=== PATIENT | male | born 1980 | race Hispanic/Latino ===

== ENCOUNTER 2018-10-08 07:54 | Observation (INO) | payer OTHER ==
[~2018-10-08] VITALS: Ht 170.2 cm; Wt 96.0 kg
[2018-10-08] MEDS ORDERED: DICYCLOMINE HCL 20 MG/2 ML VIAL IM ONE (08:00)
[2018-10-08] MEDS ORDERED: LOPERAMIDE HCL 2 MG CAP PO ONE (08:00)
[2018-10-08] MEDS ORDERED: SODIUM CHLORIDE 0.9% 1000ML 2,000 ML IV ONE (08:00)
[2018-10-08] MEDS ORDERED: LACTOBACILLUS ACIDOPHILUS CAPSULE PO ONE (08:00)
[2018-10-08] MEDS ORDERED: SODIUM CHLORIDE 0.9% 1000ML 2,000 ML ONE (08:26)
[2018-10-08] MEDS ORDERED: FAMOTIDINE 20 MG/2 ML VIAL IV NR (08:30)
[2018-10-08] MEDS ORDERED: METOCLOPRAMIDE HCL 10 MG/2ML VIAL IV NR (08:30)
[2018-10-08 08:41] LABS: HEMATOCRIT 47.7 % (38.2-49.6); HEMOGLOBIN 16.2 g/dL (14.0-18.0); MEAN CORPUSCULAR HEMOGLOBIN 26.8 pg (28-32); MEAN CORPUSCULAR VOLUME 78.8 fL (81-99); PLATELET COUNT 314 x10e3/uL (140-360); RED BLOOD COUNT 6.05 x10e6/uL (4.3-5.7); RED CELL DISTRIBUTION WIDTH 12.5 % (11.7-14.4)
[2018-10-08] MEDS ORDERED: ATENOLOL50 MG PO (08:51)
[2018-10-08] MEDS ORDERED: MIRTAZAPINE30 MG PO (08:51)
[2018-10-08 08:59] LABS: ALANINE AMINOTRANSFERASE 50 IU/L (0-55); ALBUMIN 4.1 g/dL (3.5-5.0); ALBUMIN/GLOBULIN RATIO 1.1 (0.8-2.0); ALKALINE PHOSPHATASE 105 IU/L (40-150); ANION GAP 17.7 mmol/L (8-16); BLOOD UREA NITROGEN 21 mg/dL (7-26); BUN/CREATININE RATIO 20 (6-25); CALCIUM 8.8 mg/dL (8.4-10.2); CARBON DIOXIDE 16 mmol/L (22-29); CHLORIDE 97 mmol/L (98-107); CREATININE, SERUM 1.04 mg/dL (0.72-1.25); EST GLOMERULAR FILTRATION RATE > 60 ML/MIN (60-); GLUCOSE 290 mg/dL (74-118); LIPASE 44 U/L (8-78); POTASSIUM 3.7 mmol/L (3.5-5.1); SODIUM 127 mmol/L (136-145)
[2018-10-08] MEDS ORDERED: IBUPROFEN400 MG PO (08:59)
[2018-10-08] MEDS ORDERED: ATORVASTATIN CA20 MG PO (08:59)
[2018-10-08] MEDS ORDERED: LISINOPRIL2.5 MG PO (08:59)
[2018-10-08] MEDS ORDERED: NOVOLOG100 UNIT/1 SC (08:59)
[2018-10-08] MEDS ORDERED: VITAMIN D400 UNIT PO (08:59)
[2018-10-08] MEDS ORDERED: LEVEMIR100 UNIT/1 SC (08:59)
[2018-10-08] MEDS ORDERED: PANTOPRAZOLE SO40 MG PO (08:59)
[2018-10-08] MEDS ORDERED: METFORMIN HCL500 MG PO (08:59)
[2018-10-08] MEDS ORDERED: CETIRIZINE HCL10 MG PO (08:59)
[2018-10-08] MEDS ORDERED: LACTATED RINGER'S 1,000 ML ONE (10:10)
[2018-10-08] MEDS ORDERED: LACTATED RINGER'S 1,000 ML IV ONE (10:15)
[2018-10-08] MEDS ORDERED: IBUPROFEN 600 MG TAB PO STA (10:34)
[2018-10-08] MEDS ORDERED: SODIUM CHLORIDE FLUSH 10 ML SYR INJ PRN (11:15)
[2018-10-08] MEDS ORDERED: HYOSCYAMINE 0.125 MG TAB PO PRN (11:15)
[2018-10-08] MEDS ORDERED: LOPERAMIDE HCL 2 MG CAP PO PRN (11:15)
[2018-10-08 11:17] LABS: EOSINOPHILS % (MANUAL) 2 % (0-7); LYMPHOCYTES % (MANUAL) 2 % (19-48); MONOCYTES % (MANUAL) 5 % (3.4-9.0); NEUTROPHILS % (MANUAL) 91 % (40-74); PLATELET ESTIMATE ADEQUATE; PLATELET MORPHOLOGY COMMENT NORMAL
[2018-10-08 11:18] LABS: RBC MORPHOLOGY COMMENT NORMAL
[2018-10-08] MEDS ORDERED: DEXTROSE 50% SYRINGE 50 ML IV PRN (11:30)
[2018-10-08] MEDS: CEFTRIAXONE SOD 1 GM/NS 50 ML 50 ML IV SCH ×2 (12:04)
[2018-10-08] MEDS: SODIUM CHLORIDE 0.9% 1000ML 1,000 ML IV SCH ×2 (12:04→17:27)
[2018-10-08] MEDS: ONDANSETRON HCL INJ 2MG/ML 2ML 2 MG/ML VIAL IV PRN ×2 (12:05→16:12)
[2018-10-08 15:10] VITALS: BP 120/82
--- NOTE | 2018-10-08 15:30 | NUR ---
Pt received from ER via wheelchair with at bedside. Alert and oriented x4 with saline lock #20 in right AC. Oriented to staff and surroundings, encouraged to press call bruno if help needed. Emotional support given. Fall precautions maintained. Will monitor
[2018-10-08 15:55] VITALS: BP 120/82
[2018-10-08] MEDS: MORPHINE SULFATE INJ 4 MG/ML INJ 1ML IV PRN (16:12)
[2018-10-08] MEDS: INSULIN REGULAR, HUMAN 100 UNIT/1 ML 3ML VIAL SQ SCH ×2 (16:30→21:29)
[2018-10-08] MEDS: FAMOTIDINE 20 MG/2 ML VIAL IV SCH (17:27)
--- NOTE | 2018-10-08 18:47 | NUR ---
Stool for C. Diff sent. Meds given as ordered. Emotional support given. Fall precautions maintained. Will endorse to next shift
--- NOTE | 2018-10-08 19:20 | NUR ---
Reported received from morning nurse. Pt alert to name. Lying in bed HOB 30. Denies pain at this time. Call bruno within reach. Will continue to monitor.
[2018-10-08 20:00] VITALS: BP 111/73
[2018-10-08 20:15] VITALS: BP 111/73
--- NOTE | 2018-10-08 20:49 | NUR ---
Spoke with WILLIAMS Mares to Dr. Del Castillo regarding Pt's fever 101.2. Ordered Tylenol 650mg every 6 hours prn pain/fever.
[2018-10-08] MEDS ORDERED: ACETAMINOPHEN 325 MG TAB PO PRN (21:00)
[2018-10-09] VITALS (7 sets, daily range): BP systolic 107–139; BP diastolic 74–91
[2018-10-09] MEDS: SODIUM CHLORIDE 0.9% 1000ML 1,000 ML IV SCH ×3 (04:31→23:29)
[2018-10-09 05:56] LABS: BASOPHILS % 0.2 % (0.0-1.0); EOSINOPHILS # (AUTO) 0.2 (0.0-0.4); EOSINOPHILS % 3.9 % (0.0-6.0); HEMATOCRIT 37.1 % (38.2-49.6); HEMOGLOBIN 12.2 g/dL (14.0-18.0); LYMPHOCYTES # (AUTO) 1.1 (1.0-3.2); LYMPHOCYTES % 20.8 % (18.0-39.1); MEAN CORPUSCULAR HEMOGLOBIN 26.3 pg (28-32); MEAN CORPUSCULAR HGB CONC 32.9 g/dL (31-35); MEAN CORPUSCULAR VOLUME 80.1 fL (81-99); MONOCYTES # (AUTO) 0.7 (0.2-0.8); MONOCYTES % 13.6 % (4.4-11.3); NEUTROPHILS # (AUTO) 3.1 (2.1-6.9); NEUTROPHILS % 60.9 % (38.7-80.0); PLATELET COUNT 217 x10e3/uL (140-360); RED BLOOD COUNT 4.63 x10e6/uL (4.3-5.7); RED CELL DISTRIBUTION WIDTH 12.3 % (11.7-14.4)
[2018-10-09 06:14] LABS: ALANINE AMINOTRANSFERASE 36 IU/L (0-55); ALBUMIN 2.8 g/dL (3.5-5.0); ALKALINE PHOSPHATASE 70 IU/L (40-150); ANION GAP 10.5 mmol/L (8-16); BLOOD UREA NITROGEN 10 mg/dL (7-26); BUN/CREATININE RATIO 13 (6-25); CALCIUM 7.8 mg/dL (8.4-10.2); CARBON DIOXIDE 22 mmol/L (22-29); CHLORIDE 105 mmol/L (98-107); EST GLOMERULAR FILTRATION RATE > 60 ML/MIN (60-); GLUCOSE 127 mg/dL (74-118); MAGNESIUM 1.7 MG/DL (1.3-2.1); PHOSPHORUS 2.8 MG/DL (2.3-4.7); POTASSIUM 3.5 mmol/L (3.5-5.1); SODIUM 134 mmol/L (136-145)
--- NOTE | 2018-10-09 07:02 | NUR ---
RECEIVED PATIENT RESTING IN BED. NO ACUTE DISTRESS NOTED. DENIES PAIN OR DISCOMFORT. CALL LIGHT WITHIN REACH. BED IN THE LOWEST POSITION.
[2018-10-09] MEDS: INSULIN REGULAR, HUMAN 100 UNIT/1 ML 3ML VIAL SQ SCH ×4 (07:30→21:00)
[2018-10-09] MEDS: FAMOTIDINE 20 MG/2 ML VIAL IV SCH ×2 (09:09→17:49)
[2018-10-09] MEDS: LACTOBACILLUS ACIDOPHILUS CAPSULE PO SCH (09:09)
[2018-10-09] MEDS: CEFTRIAXONE SOD 1 GM/NS 50 ML 50 ML IV SCH ×2 (11:12→23:29)
[2018-10-09] MEDS ORDERED: CYCLOBENZAPRINE10 MG PO (14:44)
--- NOTE | 2018-10-09 19:36 | NUR ---
REPORT GIVEN TO ONCOMING NURSE. PATIENT IS RESTING IN BED. NO ACUTE DISTRESS NOTED. PATIENT DENIES PAIN OR DISCOMFORT. CALL LIGHT WITHIN REACH. BED IN THE LOWEST POSITION.
--- NOTE | 2018-10-09 19:41 | NUR ---
PT IS RESTING IN BED. NO RESPIRATORY DISTRESS NOTED. BED IN THE LOWEST POSITION, LOCKED, AND CALL LIGHT WITHIN REACH. WILL CONTINUE TO MONITOR.
[2018-10-09] MEDS ORDERED: GABAPENTIN300 MG PO (19:46)
--- NOTE | 2018-10-09 20:59 | NUR ---
SPOKE TO DR SHARATH ZURITA TO FIND OUT IF SOMEONE WILL BE SEEING THE PT TODAY. THE PT IS VERY UPSET AND IS COMPLAINING THAT NO ONE HAS SEEN HIM YET. PER NOEMY BERNABE WILL BE SEEING HE PT. WILL CONTINUE TO MONITOR.
[2018-10-09] MEDS ORDERED: HYDRALAZINE HCL 20 MG/ML VIAL IV PRN (22:45)
[2018-10-09] MEDS ORDERED: IBUPROFEN 400 MG TAB PO PRN (23:15)
[2018-10-09] MEDS ORDERED: POTASSIUM CHLORIDE 20 MEQ TAB CR PO STA (23:17)
[2018-10-09] MEDS ORDERED: MIRTAZAPINE 15 MG TAB PO SCH (23:18)
[2018-10-10] VITALS: BP 122/69
[2018-10-10 04:45] VITALS: BP 127/73
[2018-10-10 06:16] LABS: BASOPHILS % 0.4 % (0.0-1.0); EOSINOPHILS # (AUTO) 0.2 (0.0-0.4); EOSINOPHILS % 3.9 % (0.0-6.0); HEMATOCRIT 37.2 % (38.2-49.6); HEMOGLOBIN 12.5 g/dL (14.0-18.0); LYMPHOCYTES # (AUTO) 1.3 (1.0-3.2); LYMPHOCYTES % 28.3 % (18.0-39.1); MEAN CORPUSCULAR HEMOGLOBIN 26.8 pg (28-32); MEAN CORPUSCULAR HGB CONC 33.6 g/dL (31-35); MEAN CORPUSCULAR VOLUME 79.8 fL (81-99); MONOCYTES # (AUTO) 0.7 (0.2-0.8); MONOCYTES % 13.9 % (4.4-11.3); NEUTROPHILS # (AUTO) 2.5 (2.1-6.9); NEUTROPHILS % 52.9 % (38.7-80.0); PLATELET COUNT 214 x10e3/uL (140-360); RED BLOOD COUNT 4.66 x10e6/uL (4.3-5.7); RED CELL DISTRIBUTION WIDTH 12.3 % (11.7-14.4)
[2018-10-10] MEDS: SODIUM CHLORIDE 0.9% 1000ML 1,000 ML IV SCH ×2 (06:37→14:50)
[2018-10-10 06:59] LABS: ANION GAP 11.9 mmol/L (8-16); BLOOD UREA NITROGEN 8 mg/dL (7-26); BUN/CREATININE RATIO 11 (6-25); CALCIUM 8.3 mg/dL (8.4-10.2); CARBON DIOXIDE 22 mmol/L (22-29); CHLORIDE 109 mmol/L (98-107); CHOL/HDL RATIO 4.2 (3.9-4.7); CHOLESTEROL 93 MD/DL (0-199); CREATININE, SERUM 0.74 mg/dL (0.72-1.25); EST GLOMERULAR FILTRATION RATE > 60 ML/MIN (60-); GLUCOSE 148 mg/dL (74-118); HDL CHOLESTEROL 22 MG/DL (40-60); LDL CHOLESTEROL 44 MG/DL (60-130); MAGNESIUM 1.8 MG/DL (1.3-2.1); PHOSPHORUS 3.8 MG/DL (2.3-4.7); POTASSIUM 3.9 mmol/L (3.5-5.1); SODIUM 139 mmol/L (136-145); TRIGLYCERIDES 133 MG/DL (0-149)
--- NOTE | 2018-10-10 07:07 | NUR ---
RECEIVED PATIENT RESTING IN BED. NO ACUTE DISTRESS NOTED. PAIN AT A TOLERABLE LEVEL AT THIS TIME. CALL LIGHT WITHIN REACH. BED IN THE LOWEST POSITION.
[2018-10-10] MEDS: INSULIN REGULAR, HUMAN 100 UNIT/1 ML 3ML VIAL SQ SCH ×2 (07:30→11:30)
[2018-10-10 07:35] VITALS: BP 121/89
[2018-10-10 07:54] VITALS: BP 121/89
[2018-10-10] MEDS ORDERED: NON-FORMULARY MEDICATION (Cholecalciferol (Vitamin D3) (Vitamin D) 400 UNITS) PO SCH (09:00)
[2018-10-10] MEDS ORDERED: CHOLECALCIFEROL 400 UNIT TAB PO SCH (09:00)
[2018-10-10] MEDS ORDERED: LORATADINE 10 MG TAB PO SCH (09:00)
[2018-10-10] MEDS ORDERED: NON-FORMULARY MEDICATION (Cetirizine Hcl 10 MG) PO SCH (09:00)
[2018-10-10] MEDS: LACTOBACILLUS ACIDOPHILUS CAPSULE PO SCH (09:06)
[2018-10-10] MEDS: FAMOTIDINE 20 MG/2 ML VIAL IV SCH (09:06)
[2018-10-10] MEDS: ONDANSETRON HCL INJ 2MG/ML 2ML 2 MG/ML VIAL IV PRN (09:07)
[2018-10-10] MEDS: MORPHINE SULFATE INJ 4 MG/ML INJ 1ML IV PRN (09:07)
--- NOTE | 2018-10-10 11:13 | NUR ---
SOCIAL WORK INITIAL ASSESSMENT Fitness Technician to bedside to discuss plan of care with patient/family. CM/SW role and care transitions discussed. Anticipated discharge plan discussed along with duration of care. CM/SW discussed patients right to make decisions in care. CM/SW work hours given. 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 Name and number was also written on the patients whiteboard. Patient verbalized understanding of discussion. CM will follow-up with ongoing discharge and transition of care needs.
[2018-10-10 12:08] VITALS: BP 123/85
--- NOTE | 2018-10-10 12:16 | NUR ---
PER DR. ASHA GONZALEZ TO DC ISOLATION FOR PATIENT.
[2018-10-10] MEDS: CEFTRIAXONE SOD 1 GM/NS 50 ML 50 ML IV SCH (12:34)
[2018-10-10] MEDS ORDERED: Lactobacillus Acidophilus PO (15:06)
[2018-10-10] MEDS ORDERED: IMODIUM2 MG PO (15:06)
[2018-10-10 16:29] VITALS: BP 119/87
--- NOTE | 2018-10-10 16:47 | NUR ---
RECEIVED DC ORDER FROM ART LIBRARIAN. PATIENT IS IN STABLE CONDITION. IV TO RIGHT AC DISCONTINUED WITH TIP INTACT, PRESSURE APPLIED TO SITE, NO BLEEDING NOTED. DISCHARGE FOLDER, WHICH INCLUDES THE DC PAPERWORK AND PRESCRIPTIONS, AND PERSONAL ITEMS ON HAND. PATIENT ACCOMPANIED TO PRIVATE AUTO BY STAFF.
--- NOTE | 2018-10-10 17:11 | Consultation ---
DATE OF CONSULTATION: Pulmonary Critical Care Consultation CHIEF COMPLAINT: Nausea, vomiting, and diarrhea. HISTORY OF PRESENT ILLNESS: The patient is a 38-year-old man. He has a history of type 2 diabetes and obstructive sleep apnea. The day before yesterday he started noticing some diarrhea as well as some nausea and some vomiting. He was unable to keep anything down. He denied any fevers. He denies any prior history of gastrointestinal problems. PAST SURGICAL HISTORY: 1. Status post stent. 2. Status post surgery for a medial collateral ligament rupture. 3. Status post . SOCIAL HISTORY: The patient has a history of some smoking and rarely drinks. PAST MEDICAL HISTORY: 1. Type 2 diabetes. 2. Hypertension. 3. Obstructive sleep apnea. ALLERGIES: NO KNOWN DRUG ALLERGIES. REVIEW OF SYSTEMS: He has no fever. He denies any headache or nasal congestion. He has no sore throat. He does not complain of any chest pain. The patient has some dyspnea, but no cough. There is no abdominal pain. He has no nausea or vomiting. He has no further diarrhea. PHYSICAL EXAMINATION: VITAL SIGNS: The patient is afebrile. The blood pressure is 121/89, pulse is 70, respiratory rate is 18, and saturation is 98%. HEENT: Shows no facial swelling or erythema. The oropharynx is normal. LYMPHATIC: Shows no submandibular, cervical, or supraclavicular adenopathy. CARDIAC: Reveals regular rate and rhythm with normal S1 and S2. There are no murmurs or rubs. LUNGS: Auscultation of lungs reveals clear breath sounds bilaterally. There is no wheezing. ABDOMEN: Soft, nontender. There is no rebound or guarding. EXTREMITIES: Show no leg edema or calf tenderness. LABORATORY DATA: White blood cell count is 4.66 and the hemoglobin is 12.5. The platelet count is 214. BUN to creatinine ratio is 8 to 0.74 and the other electrolytes are within normal limits. IMPRESSION: 1. Acute gastroenteritis. 2. Obstructive sleep apnea. 3. Type 2 diabetes mellitus. 4. Hypertension. PLAN: 1. Continue IV hydration. 2. Oral fluoroquinolone for infectious gastroenteritis. 3. Continue CPAP at night. 4. Continue current diabetic regimen. Masoud Estrella MD Magaly/SCOTTYL /[id number]
[2018-10-10] MEDS ORDERED: ATORVASTATIN 20 MG TAB PO SCH (21:00)
[2018-10-10] MEDS ORDERED: NON-FORMULARY MEDICATION (Mirtazapine 30 MG) PO SCH (21:00)
[2018-10-10] MEDS ORDERED: GABAPENTIN 300 MG CAP PO SCH (21:00)
--- NOTE | 2018-10-11 15:14 | Discharge Summary ---
PERTINENT HISTORY AND PHYSICAL FINDINGS: The patient was admitted with complaints of mild nausea, vomiting, diarrhea with crampy abdominal pain, which started Friday on October 07. He was also experiencing severe watery diarrhea. He denied any sick contacts with any individuals. Did state that his heart rate was fast. He recalled vomiting 2 to 3 times on October 07, but none since. A 38-year-old male, last ate on October 06 with his entire family and no one became sick afterwards except for him. PAST MEDICAL HISTORY: Significant for type 2 diabetes mellitus, hypertension, hyperlipidemia, anxiety, depression associated with PTSD, traumatic brain injury as a disabled , history of obstructive sleep apnea with use of CPAP at home. He no longer smokes. ADMITTING DIAGNOSES: 1. Acute viral gastroenteritis with volume depletion and severe dehydration. 2. Type 2 diabetes mellitus. 3. Hypertension. 4. Hypokalemia. 5. Hyponatremia. 6. Obstructive sleep apnea. 7. Post-traumatic stress disorder/history of traumatic brain injury/anxiety/depression/disabled . DISCHARGE DIAGNOSES: 1. Acute viral gastroenteritis with volume depletion and severe dehydration. 2. Type 2 diabetes mellitus. 3. Hypertension. 4. Hypokalemia. 5. Hyponatremia. 6. Obstructive sleep apnea. 7. Post-traumatic stress disorder/history of traumatic brain injury/anxiety/depression/disabled . CONSULTATIONS: There were no consulting physicians with this admission. PERTINENT DIAGNOSTICS AND LABS: The white blood cell count on October 08 was 12.18, this has improved to 4.66, hemoglobin 16.2 and hematocrit 47.7 on admission. This has decreased with hydration. On October 08, sodium 127, chloride 97, anion gap 17.7, glucose 290. Hemoglobin A1c on October 10 was 9.4%. C difficile toxin was negative on October 08, lipase 44, total protein 5.6, albumin 2.8. HOSPITAL COURSE: For the acute viral gastroenteritis, the patient was given probiotic, hyoscyamine. He was on high rate IV fluids of normal saline at 125 mL an hour during his stay and remains on this to complete his hydration. Prior to discharge, his diet was gradually advanced. He was on a clear liquid diet. This was increased to a 2200-calorie ADA GI soft diet. His Levemir insulin and NovoLog insulin were held while he was not eating much. In addition, lisinopril and atenolol were held initially. Renal function has remained stable today. BUN 8, creatinine 0.74, GFR greater than 60. He was given 40 mEq of potassium by mouth yesterday. Today, potassium 3.9. Today, the patient denies any nausea, vomiting, diarrhea, crampy abdominal pain, or any new issues. Physical examination remains the same. DISPOSITION: The patient will be discharged home with family. Does not require any DME or home health. DISCHARGE INSTRUCTIONS: We will continue the probiotic, encourage hydration, 1800-calorie ADA diet, given his hemoglobin A1c of 9.4%. Activity as tolerated. FOLLOWUP: Follow up with his PCP, Dr. Joaquin at the [facility] in one to two weeks. Dictated by Deacon Kat NP MD CARLIE MontemayorP/LANDON /[id number]
== END 2018-10-10 16:48 | disposition home or self-care (01) ==
LOC: ER 07:54 → ERHOLD 11:11 → MED/SURG3 15:10
PROVIDERS: ADMIT Internal Medicine; ATTEND Internal Medicine
DX: A08.39 Other viral enteritis (principal); E86.0 Dehydration; E11.65 Type 2 diabetes mellitus with hyperglycemia; E87.1 Hypo-osmolality and hyponatremia; Z87.820 Personal history of traumatic brain injury; F43.10 Post-traumatic stress disorder, unspecified; I10 Essential (primary) hypertension; E78.5 Hyperlipidemia, unspecified; G47.33 Obstructive sleep apnea (adult) (pediatric); Z83.3 Family history of diabetes mellitus; Z82.49 Family history of ischemic heart disease and other diseases of the circulatory system; Z72.0 Tobacco use; E87.6 Hypokalemia; Z79.4 Long term (current) use of insulin; Z79.1 Long term (current) use of non-steroidal anti-inflammatories (NSAID)
CPT/HCPCS: 36415 ×3; 80048; 80053 ×2; 80061; 82948 ×3; 83036; 83690; 83735 ×2; 84100 ×2; 84443; 85007; 85025 ×2; 85027; 87493; 93005; 99284; G0378 ×3; J0500; J0696 ×3; J1817; J2270 ×2; J2405 ×2; J7030 ×3; J7121; J2765

== ENCOUNTER 2021-10-09 07:57 | Emergency (ER) | payer OTHER ==
[~2021-10-09] VITALS: Ht 170.2 cm; Wt 99.8 kg
[~2021-10-09 07:57] MED LIST: ATENOLOL50 MG PO; ATORVASTATIN CA20 MG PO; CETIRIZINE HCL10 MG PO; CYCLOBENZAPRINE10 MG PO; GABAPENTIN300 MG PO; IBUPROFEN400 MG PO; IMODIUM2 MG PO; LEVEMIR100 UNIT/1 SC; LISINOPRIL2.5 MG PO; Lactobacillus Acidophilus PO; METFORMIN HCL500 MG PO; MIRTAZAPINE30 MG PO; NOVOLOG100 UNIT/1 SC; PANTOPRAZOLE SO40 MG PO; VITAMIN D400 UNIT PO
== END 2021-10-09 08:25 | disposition home or self-care (01) ==
LOC: ER 08:10
DX: N49.2 Inflammatory disorders of scrotum (principal); I10 Essential (primary) hypertension; E11.9 Type 2 diabetes mellitus without complications; E78.5 Hyperlipidemia, unspecified; K21.9 Gastro-esophageal reflux disease without esophagitis; F41.9 Anxiety disorder, unspecified
CPT/HCPCS: 99283

== ENCOUNTER 2021-10-11 07:39 | Emergency (ER) | payer OTHER ==
[~2021-10-11] VITALS: Ht 170.2 cm; Wt 99.8 kg
[2021-10-11] MEDS ORDERED: PIPERACILLIN/TAZOBACTAM 4.5 GM in SODIUM CHLORIDE 0.9% 100 ML IV STA (08:58)
[2021-10-11] MEDS ORDERED: LACTATED RINGER'S 1,000 ML INJ ONE (09:00)
[2021-10-11 09:15] LABS: BASOPHILS # (AUTO) 0.1 (0.0-0.1); BASOPHILS % 0.4 % (0.0-1.0); EOSINOPHILS # (AUTO) 0.2 (0.0-0.4); HEMATOCRIT 41.7 % (38.2-49.6); HEMOGLOBIN 14.1 g/dL (14.0-18.0); LYMPHOCYTES # (AUTO) 1.3 (1.0-3.2); LYMPHOCYTES % 6.2 % (18.0-39.1); MEAN CORPUSCULAR HEMOGLOBIN 27.4 pg (28-32); MEAN CORPUSCULAR HGB CONC 33.8 g/dL (31-35); MEAN CORPUSCULAR VOLUME 81.1 fL (81-99); MONOCYTES # (AUTO) 1.8 (0.2-0.8); MONOCYTES % 8.3 % (4.4-11.3); NEUTROPHILS # (AUTO) 17.9 (2.1-6.9); NEUTROPHILS % 83.4 % (38.7-80.0); PLATELET COUNT 274 x10e3/uL (140-360); RED BLOOD COUNT 5.14 x10e6/uL (4.3-5.7); RED CELL DISTRIBUTION WIDTH 12.1 % (11.7-14.4)
[2021-10-11 09:33] LABS: ALBUMIN 3.4 g/dL (3.5-5.0); ALBUMIN/GLOBULIN RATIO 0.9 (0.8-2.0); ANION GAP 13.9 mmol/L (8-16); CALCIUM 9.3 mg/dL (8.4-10.2); CREATININE, SERUM 1.33 mg/dL (0.72-1.25); POTASSIUM 3.9 mmol/L (3.5-5.1)
[2021-10-11 09:42] LABS: CLARITY,URINE CLEAR (CLEAR); COLOR,URINE YELLOW (YELLOW); LEUKOCYTE ESTERASE ,URINE NEGATIVE (NEGATIVE); NITRITE,URINE NEGATIVE (NEGATIVE)
[2021-10-11 09:43] LABS: KETONES,URINE TRACE (NEGATIVE); PROTEIN,URINE DIPSTICK TRACE (NEGATIVE); URINE UROBILINOGEN 0.2 mg/dL (0.2 - 1)
[2021-10-11 09:53] LABS: BACTERIA,URINE RARE /HPF
[2021-10-11 09:54] LABS: MUCUS,URINE FEW (RARE)
[2021-10-11] MEDS ORDERED: SODIUM CHLORIDE 0.9% 50ML 50 ML ONE (10:29)
[2021-10-11] MEDS ORDERED: IOPAMIDOL 370 MG/ML 200 ML INFUS..BTL INJ ONE (10:29)
[2021-10-11] MEDS ORDERED: DOXYCYCLINE HY100 MG PO (11:13)
[2021-10-11 12:02] VITALS: BP 110/78
== END 2021-10-11 12:00 | disposition home or self-care (01) ==
LOC: ER 08:07
DX: N49.2 Inflammatory disorders of scrotum (principal); I10 Essential (primary) hypertension; E11.65 Type 2 diabetes mellitus with hyperglycemia; E78.5 Hyperlipidemia, unspecified; K21.9 Gastro-esophageal reflux disease without esophagitis; F41.9 Anxiety disorder, unspecified
CPT/HCPCS: 36415; 74177; 80053; 81001; 83605; 85025; 87040; 87086; 99284; J2543; J7050; J7121; Q9967

== ENCOUNTER 2021-10-11 22:25 | Emergency (ER) | payer OTHER ==
[~2021-10-11] VITALS: Ht 167.6 cm; Wt 102.1 kg
[~2021-10-11 22:25] MED LIST changes: +DOXYCYCLINE HY100 MG PO
[2021-10-11] MEDS ORDERED: SODIUM CHLORIDE 0.9% 1000ML 1,000 ML IV STA (22:46)
[2021-10-11] MEDS ORDERED: Vancomycin IV 1 GM in SODIUM CHLORIDE 0.9% 250ML 250 ML IV STA (22:46)
[2021-10-11] MEDS ORDERED: PIPERACILLIN/TAZOBACTAM 4.5 GM in SODIUM CHLORIDE 0.9% 100 ML IV STA (22:46)
[2021-10-11] MEDS ORDERED: SODIUM CHLORIDE 0.9% 1000ML 1,000 ML ONE (22:51)
[2021-10-11] MEDS ORDERED: ACETAMINOPHEN 1000 MG/100 ML 100 ML IV ONE (22:51)
[2021-10-11] MEDS ORDERED: HYDROMORPHONE 1MG/1ML INJ IV STA (22:52)
[2021-10-11 22:57] LABS: BASOPHILS # (AUTO) 0.1 (0.0-0.1); BASOPHILS % 0.4 % (0.0-1.0); EOSINOPHILS # (AUTO) 0.3 (0.0-0.4); EOSINOPHILS % 1.3 % (0.0-6.0); HEMATOCRIT 39.3 % (38.2-49.6); HEMOGLOBIN 13.3 g/dL (14.0-18.0); LYMPHOCYTES # (AUTO) 1.6 (1.0-3.2); LYMPHOCYTES % 7.8 % (18.0-39.1); MEAN CORPUSCULAR HEMOGLOBIN 27.5 pg (28-32); MEAN CORPUSCULAR HGB CONC 33.8 g/dL (31-35); MEAN CORPUSCULAR VOLUME 81.4 fL (81-99); MONOCYTES # (AUTO) 1.5 (0.2-0.8); MONOCYTES % 7.3 % (4.4-11.3); NEUTROPHILS # (AUTO) 17.3 (2.1-6.9); NEUTROPHILS % 82.2 % (38.7-80.0); PLATELET COUNT 272 x10e3/uL (140-360); RED BLOOD COUNT 4.83 x10e6/uL (4.3-5.7); RED CELL DISTRIBUTION WIDTH 11.9 % (11.7-14.4)
[2021-10-11] MEDS ORDERED: ACETAMINOPHEN 1000 MG/100 ML IV STA (23:04)
[2021-10-11 23:09] LABS: ALBUMIN 3.3 g/dL (3.5-5.0); ALBUMIN/GLOBULIN RATIO 0.7 (0.8-2.0); ANION GAP 13.1 mmol/L (8-16); CALCIUM 9.7 mg/dL (8.4-10.2); CREATININE, SERUM 1.08 mg/dL (0.72-1.25); POTASSIUM 4.1 mmol/L (3.5-5.1)
[2021-10-11] MEDS ORDERED: ONDANSETRON HCL INJ 2MG/ML 2ML 2 MG/ML VIAL ONE (23:18)
[2021-10-12] MEDS ORDERED: SODIUM CHLORIDE 0.9% 50ML 50 ML ONE (01:04)
[2021-10-12] MEDS ORDERED: IOPAMIDOL 370 MG/ML 200 ML INFUS..BTL INJ ONE (01:04)
[2021-10-12 01:33] LABS: CLARITY,URINE CLEAR (CLEAR); COLOR,URINE YELLOW (YELLOW); KETONES,URINE NEGATIVE (NEGATIVE); LEUKOCYTE ESTERASE ,URINE NEGATIVE (NEGATIVE); NITRITE,URINE NEGATIVE (NEGATIVE); PROTEIN,URINE DIPSTICK TRACE (NEGATIVE); URINE UROBILINOGEN 0.2 mg/dL (0.2 - 1)
[2021-10-12 01:35] LABS: BACTERIA,URINE RARE /HPF; EPITHELIAL CELLS,URINE RARE /LPF; RBC,URINE 0-5 /HPF (0-5); WBC,URINE (MAN) 0-5 /HPF (0-5)
[2021-10-12] MEDS ORDERED: FENTANYL CITRATE/PF 100MCG/2 ML INJ IV ONE (02:15)
[2021-10-12 02:27] VITALS: BP 119/81
== END 2021-10-12 02:31 | disposition other institution (70) ==
LOC: ER 22:30
DX: A41.9 Sepsis, unspecified organism (principal); N49.3 Fournier gangrene; E11.65 Type 2 diabetes mellitus with hyperglycemia; I10 Essential (primary) hypertension; E78.5 Hyperlipidemia, unspecified; F41.9 Anxiety disorder, unspecified; Z20.822 Contact with and (suspected) exposure to COVID-19
CPT/HCPCS: 36415; 72193; 80053; 81001; 83605; 85025; 87040; 87086; 99284; J0131; J1170; J2405; J2543; J3010; J3370; J7030; J7050 ×2; Q9967; U0002